=== PATIENT | female | born 1955 | race Caucasian/White ===

== ENCOUNTER → 2023-10-13 | Outpatient (CLI) | payer BC, MEDICARE ==
--- NOTE | 2023-10-13 14:31 | XR ---
EXAMINATION TYPE: XR KUB DATE OF EXAM: 10/13/2023 COMPARISON: None HISTORY: Pain, renal calculi TECHNIQUE: One view abdominal series FINDINGS: The osseous structures are intact. Mild hypertrophic and degenerative change lower lumbar spine. Bila teral hip arthropathy. Chronic appearing deformity of the left iliac bone. The bowel gas pattern is n onspecific. Left kidney: There is a 5 mm calcification overlying the upper pole of the left kidney. Right kidney: Bowel content limits the right renal outline. There are 3 calcifications along the righ t paraspinal line the largest measuring 3 mm. Suspect multiple right-sided ureteral calculi. No defin ite calcifications overlying the renal outline. Pelvis: Nonspecific punctate calcifications. Distal ureteral calculi not entirely excluded. IMPRESSION: 1. There is a 5 mm left renal calculus. 2. Multiple mid right ureteral calculi suspected. Largest measuring 3 mm in diameter.
== END | disposition home or self-care (01) ==
LOC: RADXRMAIN 14:11
PROVIDERS: ATTEND Urology
DX: N20.0 Calculus of kidney (principal)
CPT/HCPCS: 74018

== ENCOUNTER → 2023-10-22 | Outpatient (CLI) | payer MEDICARE ==
--- NOTE | 2023-10-22 17:03 | CT ---
EXAMINATION TYPE: CT abdomen pelvis wo con CT DLP: 1000 mGycm, Automated exposure control for dose reduction was used. DATE OF EXAM: 10/22/2023 11:03 AM COMPARISON: None. CLINICAL INDICATION:Female, 68 years old with history of N20.0 CALCULUS OF KIDNEY; kidney stones TECHNIQUE: Axial CT of the abdomen and pelvis. Sagittal and coronal reformats were created on a [employer] workstation. Contrast used: mL of , (none if empty) Oral contrast used: without Oral Contrast (none if empty) FINDINGS: Exam is limited by lack of contrast. LOWER CHEST: Lung bases are clear. Postoperative changes in the region of the GE junction. Moderate s ized hiatal hernia with thickened appearance of the distal esophageal wall. A few scattered coronary arterial calcifications. Heart size is normal. ABDOMEN LIVER: Unremarkable GALLBLADDER AND BILE DUCTS: The gallbladder is surgically absent. PANCREAS: Unremarkable. SPLEEN: Unremarkable. ADRENAL GLANDS: Unremarkable. KIDNEYS AND URETERS: Mildly prominent extrarenal pelves bilaterally without dilated ureters seen. Hilary pect small parapelvic cysts bilaterally. There are in the right kidney a 5 mm calcification in the up per pole and a 3 mm calcification in the lower pole. Possible additional punctate calculus in the low er pole farther laterally. On the left, there is a 6 mm calculus in the mid kidney anteriorly, and 3 mm calculus in the kidney posteriorly. PELVIS BLADDER: Incompletely distended but grossly unremarkable. Pelvic phleboliths are present. REPRODUCTIVE: Uterus appears absent, as are probably the ovaries. ABDOMEN & PELVIS STOMACH AND BOWEL: Thickened appearance of the gastric wall just distal to the hiatal hernia. Stomach and small bowel are nondistended. Appendix appears within normal limits. Moderate stool throughout t he colon. There are multiple colonic diverticula seen, most concentrated in the sigmoid region. No d efinite focal inflammatory process to suggest diverticulitis. PERITONEUM/RETROPERITONEUM: Several small foci of gas are seen which appear to be contained within th e lumen of diverticula. No gross free air is otherwise seen. No significant free fluid. VASCULATURE: Mild atherosclerotic calcification of the aorta without evidence of AAA. MUSCULOSKELETAL: Mild degenerative changes of the spine and hips without evidence of an acute abnorma lity. Right-sided L5 appears partially sacralized. Mild degenerative change of the SI joints. No acut e or concerning osseous abnormality. LYMPH NODES: No gross evidence for lymphadenopathy. SOFT TISSUE/ABDOMINAL WALL: Small fat-containing umbilical region hernia. IMPRESSION: 1. Small bilateral renal calculi. 2. No definite ureteral calculi or hydronephrosis. 3. Prominent extrarenal pelves with parapelvic cysts suggested bilaterally. 4. Status post cholecystectomy. 5. Colonic diverticula are present, without signs of inflammation to suggest diverticulitis. 6. Postoperative changes in the region of the GE junction. Moderate sized hiatal hernia with thicken ed appearance of the distal esophageal wall, and possible thickening of the wall of the proximal stom ach. This could be due to scarring/inflammatory changes such as from esophagitis, but neoplasm remain s to be excluded.
== END | disposition home or self-care (01) ==
LOC: RADCTMAIN 10:28
PROVIDERS: ATTEND Urology
DX: N20.0 Calculus of kidney (principal); K44.9 Diaphragmatic hernia without obstruction or gangrene; K57.30 Diverticulosis of large intestine without perforation or abscess without bleeding; Z98.890 Other specified postprocedural states; Z90.49 Acquired absence of other specified parts of digestive tract
CPT/HCPCS: 74176

== ENCOUNTER → 2024-12-14 | Outpatient (CLI) | payer MEDICARE ==
--- NOTE | 2024-12-14 11:01 | XR ---
EXAMINATION TYPE: XR KUB DATE OF EXAM: 12/14/2024 COMPARISON: CT abdomen and pelvis 10/22/2023, KUB radiograph 10/13/2023 HISTORY: N20.0 calculus TECHNIQUE: Single supine KUB image of the abdomen is obtained FINDINGS: Small bowel demonstrates no evidence for dilatation or air fluid levels. Gas and fecal material is seen in non-distended colon. No convincing evidence for pneumoperitoneum. Stable pelvic phleboliths including just right lateral of the L4 vertebral body. Stable left renal 6 mm calculus. Additional stable left renal 3 mm calculus. No right renal calculi identified. No defini tive ureteral calculus. Cholecystectomy clips in the right upper quadrant. The osseous structures are intact. IMPRESSION: 1. Stable left renal calculi and pelvic phleboliths including adjacent to the right aspect of the L4 vertebral body. 2. Overall nonobstructive bowel gas pattern. [facility], , 12/14/2024 10:59 AM
== END | disposition home or self-care (01) ==
LOC: RADXRMAIN 10:38
PROVIDERS: ATTEND Urology
DX: N20.0 Calculus of kidney (principal); I87.8 Other specified disorders of veins
CPT/HCPCS: 74018